=== PATIENT | male | born 1975 | race Caucasian/White ===

== ENCOUNTER 2022-04-24 13:00 | Emergency (ER) | payer BC, SELFPAY ==
[2022-04-24 13:11] VITALS: BP 110/64; PULSE 92; RESP 16; TEMP 36.9; O2SAT 98
--- NOTE | 2022-04-24 14:35 | ED.URI ---
HPI - URI/Sore Throat General Stated Complaint: Headache/Fever Time Seen by Provider: 04/24/22 14:35 Source: patient, RN notes reviewed and old records reviewed Related Data Allergies Allergy/AdvReac Type Severity Reaction Status Date / Time No Known Allergies Allergy Unverified 12/10/11 21:21 [facility] Family History Family History (Updated 08/30/16 @ 14:07 by DOCTOR UNKNOWN) Mother Patient's mother is , Onset Age: 62 Father Patient's father is , Onset Age: 64 Family history of malignant neoplasm of kidney Social History Social History Alcohol intake: never Course Vital Signs Vital signs: Vital Signs Temperature 36.9 C 04/24/22 13:11 Pulse Rate 92 04/24/22 13:11 Respiratory Rate 16 04/24/22 13:11 Blood Pressure 110/64 04/24/22 13:11 Pulse Oximetry 98 04/24/22 13:11 Oxygen Delivery Room Air 04/24/22 13:11 Temperature 36.9 C 04/24/22 13:11 Pulse Rate 92 04/24/22 13:11 Respiratory Rate 16 04/24/22 13:11 Blood Pressure 110/64 04/24/22 13:11 Pulse Oximetry 98 04/24/22 13:11 Oxygen Delivery Room Air 04/24/22 13:11 Discharge Plan Discharge Follow-up/Referrals: PHYSICIAN,PRINCIPAL ASSOCIATE [Primary Care Provider] - Quality [place] Coma Scale Eyes: Open Verbal: Oriented and Alert Motor: Follows Commands F[place] Coma Total Score: 15
--- NOTE | 2022-04-24 14:56 | ED.URI ---
HPI - URI/Sore Throat General Chief Complaint: Upper Respiratory Infection Stated Complaint: Headache/Fever Time Seen by Provider: 04/24/22 14:35 Source: patient, RN notes reviewed and old records reviewed Mode of arrival: ambulatory Limitations: no limitations History of Present Illness HPI Narrative: 47 year old male presents to [facility] care with complaints of 2 day history of headache, some back pain, generalized body aches with fevers up to 102F. Patient reports that he took home COVID test which was positive but has to have verification of positive results for work. He has been taking Tylenol and Aleve for his symptoms and fevers and body aches. Patient denies any shortness of breath or acute cough with SAO2 98% on room air. MD elicited complaint: fever, cough and other (headache, positive home COVID) Onset (ago): day(s) (day 2 of symptoms) Pain scale (0-10): 6 Treatments prior to arrival: acetaminophen and other (Aleve) Related Data Home Medications Medication Instructions Recorded Confirmed No Home Medications 04/24/22 04/24/22 Allergies Allergy/AdvReac Type Severity Reaction Status Date / Time No Known Allergies Allergy Unverified 04/24/22 14:51 Review of Systems Review of Systems: CONSTITUTIONAL: Reports malaise, chills, sweats, or fever. EYES: Denies visual changes, redness, or discharge. ENT: Reports rhinorrhea, congestion, sinus pain, no otalgia or sore throat. CARDIOVASCULAR: Denies chest pain, palpitations, or edema. RESPIRATORY: Reports dry cough.? Denies dyspnea. GASTROINTESTINAL: Denies abdominal pain, nausea, vomiting, diarrhea SKIN: Denies rash or itching. MUSCULOSKELETAL: Reports myalgia. NEUROLOGIC: Reports headache. All systems reviewed & are unremarkable except as noted in HPI and below PMFSH Past Medical History Medical History (Updated 05/03/22 @ 09:37 by Christine Marshall NP) Hx of migraines FELISA (obstructive sleep apnea) Surgical History Surgical History (Updated 05/03/22 @ 09:38 by Christine Marshall NP) History of nasal surgery History of surgery on arm left ORIF Family History Family History Mother Patient's mother is , Onset Age: 62 Father Patient's father is , Onset Age: 64 Family history of malignant neoplasm of kidney Social History Social History Smoking packs per day: 0.75 Smoking cigarettes per day: 15.0 Years smoked: 20 Smoking pack-years: 15.00 Smoking status: Current every day smoker Alcohol intake: never Comments At time of signature, agree with nursing past medical, surgical, social and family history. There is no relevant family history pertinent to the presenting complaint Exam Narrative: GENERAL: Well-appearing, well-nourished, and in no acute distress. HEAD: Normocephalic EYES: PERRLA, conjunctivae clear ENT: Nares clear, turbinates edematous and erythematous, clear discharge. Mucous membranes moist. TM pearly gardner with dull light reflex bilaterally; no tragal tenderness. Oropharynx erythematous without lesions. Tonsils not enlarged and without exudate, no drooling, no hoarseness, no trismus, uvula midline.post nasal drainage NECK: Supple. No lymphadenopathy CHEST: Clear to auscultation, breath sounds equal. No wheezing, rhonchi, rales, or stridor. No respiratory distress, speaks in full sentences.cough noted, SAO2 98% on room air HEART: Regular rate and rhythm. No murmur heard. SKIN: Warm, dry, no rash. NEURO: Alert and oriented x3. PSYCH: Normal mood and affect Course Course Emergency Course: Patient is aware of diagnosis, understands and agrees to treatment plan.? Anticipatory guidance given.? Patient agrees to follow-up as directed and is aware of reasons to seek care at the emergency department. Portions of this record may have been created with voice r
== END 2022-04-24 15:00 | disposition home or self-care (01) ==
PROVIDERS: Emergency Provider Registered Nurse
DX: U07.1 COVID-19 (principal)
CPT/HCPCS: 87426; 99203; C9803; G0463

== ENCOUNTER 2022-07-22 16:46 | Emergency (ER) | payer OTHER, BC, SELFPAY ==
[2022-07-22 17:28] VITALS: BP 127/78; PULSE 105; RESP 16; TEMP 36.8; O2SAT 97
--- NOTE | 2022-07-22 17:29 | ED.SKABFB ---
HPI - Skin/Abscess/Foreign Bdy General Chief complaint: Skin/Abscess/Foreign Body Stated complaint: Poss bed bugs Time Seen by Provider: 07/22/22 17:30 Source: patient Mode of arrival: ambulatory Limitations: no limitations History of Present Illness HPI narrative: Diego is a 47-year-old male patient presenting to clinic today with complaints of possible bedbug bites. He reports he had recently stayed in a hotel in [facility]. He reports he has very sensitive skin and has had this reaction before to bedbugs. He denies any new detergents, soaps, shampoos, medication, or food Related Data Allergies Allergy/AdvReac Type Severity Reaction Status Date / Time No Known Allergies Allergy Unverified 07/22/22 17:45 Review of Systems Review of Systems: Pertinent positives per HPI. Patient denies any fever, chills, rash, headache, visual changes, dizziness, cough, shortness of breath, chest pain, palpitations, nausea, vomiting, diarrhea, constipation, abdominal pain, or any urinary issues. PMFSH Past Medical History Medical History Hx of migraines FELISA (obstructive sleep apnea) Surgical History Surgical History History of nasal surgery History of surgery on arm left ORIF Family History Family History Mother Patient's mother is , Onset Age: 62 Father Patient's father is , Onset Age: 64 Family history of malignant neoplasm of kidney Social History Social History Smoking packs per day: 0.75 Smoking cigarettes per day: 15.0 Years smoked: 20 Smoking pack-years: 15.00 Smoking status: Current every day smoker Alcohol intake: never Comments At the time of my signature, I reviewed and agree with the nursing past medical, surgical, social, and family history. There is no relevant family history pertinent to the patient complaint. Exam Narrative: General: Well-developed, well nourished, in no apparent distress Head: Normocephalic, atraumatic Eyes: Pupils equally round and reactive to light bilaterally, EOM intact, sclera and conjunctive clear, no discharge, lids normal Ears: TMs intact and clear, ear canals clear, no drainage, grossly hearing normal. Nose: Nares patent, no discharge, no inflammation, no sinus tenderness. Mouth: Oral pharynx without lesions or masses, good dentition, MMM. Neck: Supple, trachea midline, no enlargement of anterior or posterior cervical nodes, no thyroid masses or goiter palpable. Cardio: Regular rate and rhythm, s1 and s2 normal, no murmur appreciated. Resp: Clear to auscultation bilaterally, no rhonchi, rales, wheezing or rubs Integumentary: [place], warm, and dry, intact without lesion, red raised welt itchy rash scattered on trunk, neck, back, legs, and buttocks from insect bites Course Course Emergency Course: Portions of this record may have been created with voice recognition software. Level of Care: Express Care Visit Vital Signs Vital signs: Vital Signs Temperature 36.8 C 07/22/22 17:28 Pulse Rate 105 H 07/22/22 17:28 Respiratory Rate 16 07/22/22 17:28 Blood Pressure 127/78 07/22/22 17:28 Pulse Oximetry 97 07/22/22 17:28 Oxygen Delivery Room Air 07/22/22 17:28 Temperature 36.8 C 07/22/22 17:28 Pulse Rate 105 H 07/22/22 17:28 Respiratory Rate 16 07/22/22 17:28 Blood Pressure 127/78 07/22/22 17:28 Pulse Oximetry 97 07/22/22 17:28 Oxygen Delivery Room Air 07/22/22 17:28 Vital signs reviewed MDM - Skin/Abscess/Foreign Bdy MDM Narrative Medical decision making narrative: At the time of visit patient is resting comfortably on the exam table. I suspect the patient has had a allergic reaction to bedbug bites. Prescription for some prednisone
== END 2022-07-22 17:57 | disposition home or self-care (01) ==
PROVIDERS: Emergency Provider Nurse Practitioner Family
DX: T63.481A Toxic effect of venom of other arthropod, accidental (unintentional), initial encounter (principal); F17.210 Nicotine dependence, cigarettes, uncomplicated
CPT/HCPCS: 99213; G0463; J1100

== ENCOUNTER 2022-11-28 19:07 | Emergency (ER) | payer BC, SELFPAY ==
[2022-11-28 19:12] VITALS: BP 142/83; PULSE 97; RESP 20; TEMP 36.8; O2SAT 97
--- NOTE | 2022-11-28 19:21 | ED.SKABFB ---
HPI - Skin/Abscess/Foreign Bdy General Chief complaint: Skin/Abscess/Foreign Body Stated complaint: welts/itching History of Present Illness HPI narrative: PATIENT PRESENTS WITH HIVES TO ABDOMEN AND BACK AND BOTH FEET NO RESPIRATORY PROBLEMS DENIES ANY CHANGE IN LIFE STYLE HASNOT TAKEN ANYTHING OVER THE COUNTER FOR HIS SYMPTOMS Related Data Allergies Allergy/AdvReac Type Severity Reaction Status Date / Time No Known Allergies Allergy Unverified 07/22/22 17:45 Review of Systems Review of Systems: CONSTITUTIONAL: DENIES FEVER, CHILLS, OR SWEATS. EYES: DENIES VISUAL CHANGES, REDNESS, OR DISCHARGE. ENT: DENIES RHINORRHEA, CONGESTION, SORE THROAT, OR OTALGIA. CARDIOVASCULAR: DENIES CHEST PAIN, PALPITATIONS, OR EDEMA. RESPIRATORY: DENIES COUGH OR DYSPNEA. GASTROINTESTINAL: DENIES ABDOMINAL PAIN, NAUSEA, VOMITING, OR DIARRHEA. GENITOURINARY: DENIES DYSURIA OR HEMATURIA. SKIN: DENIES RASH OR ITCHING. MUSCULOSKELETAL: DENIES BACK PAIN, JOINT PAIN, OR MYALGIA. NEUROLOGIC: DENIES HEADACHE, NUMBNESS, OR WEAKNESS. PSYCHIATRIC: DENIES ANXIETY OR DEPRESSION. [facility] Past Medical History Medical History Hx of migraines FELISA (obstructive sleep apnea) Surgical History Surgical History History of nasal surgery History of surgery on arm left ORIF Family History Family History Mother Patient's mother is , Onset Age: 62 Father Patient's father is , Onset Age: 64 Family history of malignant neoplasm of kidney Social History Social History Smoking packs per day: 0.75 Smoking cigarettes per day: 15.0 Years smoked: 20 Smoking pack-years: 15.00 Smoking status: Current every day smoker Alcohol intake: never Comments AT TIME OF SIGNATURE, AGREE WITH NURSING PAST MEDICAL, SURGICAL, SOCIAL AND FAMILY HISTORY. THERE IS NO RELEVANT FAMILY HISTORY PERTINENT TO THE PRESENTING COMPLAINT Exam Narrative: GENERAL: WELL-APPEARING, WELL-NOURISHED, AND IN NO ACUTE DISTRESS. HEAD: NORMOCEPHALIC, ATRAUMATIC. EYES: PERRLA AND EOMI. ENT: NARES CLEAR, NO RHINORRHEA OR EPISTAXIS. MUCOUS MEMBRANES MOIST. NECK: SUPPLE. CHEST: CLEAR TO AUSCULTATION. NO RESPIRATORY DISTRESS. HEART: REGULAR RATE AND RHYTHM. NO MURMUR HEARD. NORMAL PERIPHERAL PULSES. ABDOMEN: SOFT, NONTENDER, NONDISTENDED, NORMAL ACTIVE BOWEL SOUNDS. EXTREMITIES: NORMAL RANGE OF MOTION. NO EDEMA. SKIN: WARM, DRY, NO RASH. HIVES TO BOTH FEET ABDOMEN AND BACK NEURO: NO FOCAL DEFICITS. ALERT AND ORIENTED X3. ARNULFO COMA SCALE EYE OPENING: SPONTANEOUS 4 ARNULFO COMA SCALE MOTOR: OBEYS COMMANDS 6 ARNULFO COMA SCALE VERBAL: ORIENTED 5 ARNULFO COMA SCALE TOTAL 15 Course Course Level of Care: Express Care Visit Vital Signs Vital signs: Vital Signs Temperature 36.8 C 11/28/22 19:12 Pulse Rate 97 11/28/22 19:12 Respiratory Rate 20 11/28/22 19:12 Blood Pressure 142/83 H 11/28/22 19:12 Pulse Oximetry 97 11/28/22 19:12 Oxygen Delivery Room Air 11/28/22 19:12 Temperature 36.8 C 11/28/22 19:12 Pulse Rate 97 11/28/22 19:12 Respiratory Rate 20 11/28/22 19:12 Blood Pressure 142/83 H 11/28/22 19:12 Pulse Oximetry 97 11/28/22 19:12 Oxygen Delivery Room Air 11/28/22 19:12 Discharge Plan Discharge Clinical Impression: Urticaria Patient Disposition: Home, Self-Care Condition: Stable Instructions: Antibiotic Form, Urticaria (ED) Additional Instructions: Hives are usually caused by skin contact with an irritant such as plants, new foods, new medications, new personal or household products, these can also be caused by viral infection - Cool compresses can be beneficial to help with swelling and itching, please apply these for 20 minutes at a t
== END 2022-11-28 19:28 | disposition home or self-care (01) ==
PROVIDERS: Emergency Provider Nurse Practitioner Family
DX: L50.9 Urticaria, unspecified (principal); F17.210 Nicotine dependence, cigarettes, uncomplicated
CPT/HCPCS: 99213; G0463